=== PATIENT | male | born 1975 | race Hispanic/Latino ===

== ENCOUNTER → 2016-11-07 | Outpatient (CLI) | payer BC | END | disposition home or self-care (01) | LOC: YCFC.O 09:49 | PROVIDERS: ATTEND Nurse Practitioner Family | DX: E78.5 Hyperlipidemia, unspecified (principal); R73.09 Other abnormal glucose; Z00.00 Encounter for general adult medical examination without abnormal findings ==

== ENCOUNTER 2018-10-08 17:41 | Emergency (ER) | payer SELFPAY ==
--- NOTE | 2018-10-08 18:15 | ED.PDOC ---
History of Present Illness - General Chief Complaint: Cardiovascular Problem Stated Complaint: chest pain Time Seen by Provider: 10/08/18 17:59 Source: patient, family Exam Limitations: no limitations - History of Present Illness Initial Comments: patient comes in today for chest pain. Patient states about 30 minutes ago for about 15 minutes he started having severe pressure-like left-sided chest pain with nausea, weakness, and some shortness of breath. Patient states he drank some warm water and did have a release of some air and he felt better and the pain has currently resolved. Patient was recently in the [facility] on 05 October for similar symptoms although he states this was a little bit different. At that time they originally thought he had pancreatitis but then changed and said that he had some irritation of his colon. He was discharged with dicyclomine. He did take that medication and did seem to help with the pain as well. Patient has a past medical history significant for hyperlipidemia. Patient has a family history positive for brother who had an acute [place] in his late 50s. He has never smoked does not drink or take illicit drugs. Timing/Duration: 1/2 hour Severity/Quality: severe, pressure Location: other - left chest area Chest Pain Radiation: no radiation Activities at Onset: rest Prior Chest Pain/Cardiac Workup: no prior cardiac workup Improving Factors: other - drinking warm water and burping Worsening Factors: nothing Nitro Today/Relief: no nitro taken today Aspirin Treatment Today: no aspirin today Associated Symptoms: heartburn, shortness of breath, weakness Review of Systems - Review of Systems Constitutional: States: no symptoms reported. Denies: chills, fever, malaise EENTM: States: no symptoms reported. Denies: eye pain, tearing, ear pain, nose congestion Respiratory: States: see HPI, short of breath. Denies: cough, wheezing Cardiology: States: chest pain. Denies: edema, palpitations, syncope Gastrointestinal/Abdominal: States: nausea. Denies: abdominal pain, constipation, diarrhea, vomiting Musculoskeletal: States: no symptoms reported Skin: States: no symptoms reported Family Medical History - Family History Mother Family History: Unknown Physical Exam - Physical Exam General Appearance: Alert, Anxious, No apparent distress Eyes, Ears, Nose, Throat Exam: PERRL/EOMI, normal ENT inspection, TMs normal, pharynx normal Neck: non-tender, full range of motion, supple, normal inspection Respiratory: chest non-tender, lungs clear, normal breath sounds, no respiratory distress Cardiovascular/Chest: normal peripheral pulses, no edema, no murmur Peripheral Pulses: radial,right: 2+, radial,left: 2+ Gastrointestinal/Abdominal: normal bowel sounds, non tender, soft Neurologic: alert Skin Exam: normal color Progress - Results/Orders Results/Orders: 10/08/18 18:00 EKG STAT Laboratory Results WBC 5.0 K/mm3 (4.8-10.8) 10/08/18 18:13 RBC 5.16 M/mm3 (4.70-6.10) 10/08/18 18:13 Hgb 15.7 gm/dL (14.0-18.0) 10/08/18 18:13 Hct 46.2 % (42.0-52.0) 10/08/18 18:13 MCV 89.4 fl (80.0-94.0) 10/08/18 18:13 MCH 30.5 pg (27.0-31.0) 10/08/18 18:13 MCHC 34.1 g/dL (33.0-37.0) 10/08/18 18:13 RDW 13.1 % (11.5-14.5) 10/08/18 18:13 Plt Count 220 K/mm3 (130-400) 10/08/18 18:13 MPV 8.8 fl (7.40-10.4) 10/08/18 18:13 Absolute Neuts (auto) 2.30 K/uL (1.8-6.8) 10/08/18 18:13 Absolute Lymphs (auto) 1.90 K/uL (1.0-3.4) 10/08/18 18:13 Absolute Monos (auto) 0.60 K/uL (0.2-0.8) 10/08/18 18:13 Absolute Eos (auto) 0.20 K/uL (0.0-0.4) 10/08/18 18:13 Absolute Basos (auto) 0.10 K/uL (0.0-0.1) 10/08/18 18:13 Neutrophils % 45.6 % (42.0-78.0) 10/08/18 18:13 Lymphocytes % 37.6 % (20.0-50.0) 10/08/18 18:13 Monocytes % 12.0 % (2.0-9.0) H 10/08/18 18:13 Eosinophils % 3.4 % (1.0-5.0) 10/08/18 18:13 Basophils % 1.4 % (0.0-2.0) 10/08/18 18:13 D-Dimer, Quantitative 0.19 mg/L FEU (0-0.49) 10/08/18 18:13 Sodium 135 mmol/L (135-145) 10/08/18 18:13 Potassium 3.9 mmol/L (3.6-5.0) 10/08/18 18:13 Chloride 101 mmol/L (101-111) 10/08/18 18:13 Carbon Dioxide 24 mmol/L (21-31) 10/08/18 18:13 Anion Gap 13.9 (12-18) 10/08/18 18:13 BUN 19 mg/dL (7-18) H 10/08/18 18:13 Creatinine 0.95 mg/dL (0.6-1.3) 10/08/18 18:13 BUN/Creatinine Ratio 20.0 (10-20) 10/08/18 18:13 Random Glucose 96 mg/dL (70-105) 10/08/18 18:13 Serum Osmolality 272.2 mOsm/L (275-295) L 10/08/18 18:13 Calcium 8.8 mg/dL (8.4-10.2) 10/08/18 18:13 Total Bilirubin 0.7 mg/dL (0.2-1.0) 10/08/18 18:13 AST 24 IU/L (10-42) 10/08/18 18:13 ALT 26 IU/L (10-60) 10/08/18 18:13 Alkaline Phosphatase 55 IU/L (42-121) 10/08/18 18:13 Creatine Kinase 107 IU/L (38-174) 10/08/18 18:13 CK-MB (CK-2) 1.3 ng/mL (0.0-4.4) 10/08/18 18:13 CK-MB (CK-2) % Not Reportable 10/08/18 18:13 Troponin I < 0.02 ng/mL (0.01-0.05) 10/08/18 18:13 Serum Total Protein 7.0 gm/dL (6.4-8.2) 10/08/18 18:13 Albumin 4.1 g/dl (3.2-5.5) 10/08/18 18:13 Globulin 2.9 gm/dL (2.3-3.5) 10/08/18 18:13 Albumin/Globulin Ratio 1.4 (1.1-1.9) 10/08/18 18:13 Amylase 152 U/L (28-100) H 10/08/18 18:13 Lipase 90 U/L (22-51) H 10/08/18 18:13 chest xray: no acute cardiopulmonary process - EKG/XRAY/CT EKG: Sinus, no ST T wave changes Comments: HR 63 normal axis Departure - Departure Clinical Impression: Gastritis Qualifiers: Gastritis type: unspecified gastritis Chronicity: acute Gastritis bleeding: without bleeding Qualified Code(s): K29.00 - Acute gastritis without bleeding Disposition: Discharge to Home or Self Care Departure Forms: ED Discharge - Pt. Copy, Patient Portal Self Enrollment Instructions: DI for Chest Pain Referrals: Michaela Fung NP [Primary Care Provider] - 1-2 Weeks Additional Instructions: return to ER for chest pain, for gastritis may try Maalox plus or OTC mahad seltzer but need to follow up in 4-5 days in clinic to discuss poss GI consult or EGD
[2018-10-08 18:26] VITALS: TEMP 98.1
[2018-10-08 18:49] VITALS: O2SAT 100
--- NOTE | 2018-10-08 19:01 | RAD ---
EXAM: Single view chest. INDICATION: Chest pain. COMPARISON: Chest x-ray: None. FINDINGS: Cardiac silhouette: Unremarkable. Val: Unremarkable. Lobar consolidation: None. Pleural effusion: None. Pneumothorax: None. Other: None. Bones: Unremarkable. Other: None. IMPRESSION: 1. No acute cardiopulmonary process. Electronically signed by: Hitesh Pompa MD 10/08/2018 6:59 PM [employer] Workstation: [id number]
[2018-10-08] MEDS ORDERED: ALUM & MAG HYDROX-SIMETHICONE 30 ML, LIDOCAINE VISCOUS 2% 15 ML PO ONE ×4 (19:12→21:06)
[2018-10-08] MEDS ORDERED: ALUM & MAG HYDROX-SIMETHICONE 30 ML UD ONE ×2 (19:15→21:07)
[2018-10-08] MEDS ORDERED: LIDOCAINE HCL 2% (MOUTH-THROAT) 15 ML UD ONE ×2 (19:15→21:07)
[2018-10-08 21:39] VITALS: BP 132/96
== END 2018-10-08 21:41 | disposition home or self-care (01) ==
LOC: ER 17:41
DX: K29.00 Acute gastritis without bleeding (principal); R07.9 Chest pain, unspecified; R06.02 Shortness of breath; Z82.49 Family history of ischemic heart disease and other diseases of the circulatory system

== ENCOUNTER → 2020-05-03 | Outpatient (CLI) | payer OTHER | LOC: LAB.O 13:06 | PROVIDERS: ATTEND Internal Medicine Gastroenterology | DX: B96.81 Helicobacter pylori [H. pylori] as the cause of diseases classified elsewhere (principal) ==